=== PATIENT | female | born 1995 | race African-American/Black ===

== ENCOUNTER 2018-04-09 07:49 | Emergency (ER) | payer BC, MEDICAID ==
[~2018-04-09] VITALS: Ht 157.5 cm; Wt 61.4 kg
[~2018-04-09 07:49] MED LIST: CEPHALEXIN500 M1 PO; FLONASE0.05 MG/AC NS; IBU800 M1 PO; IRON1 CHI; LEVAQUIN 2250 MG/TAB; MOTRIN 600600 MG/TAB PO; NORCO 325 MG-51 TAB PO; PERCOCET 325 MG1 TA2 PO; PRENATAL1 TA3 PO; SEPTRA DS 8001 TAB PO; SLOW FE45 MG PO; Senokot-S PO; YAZ 28 3 MG-0.01 TAB PO; ZYRTEC 10MG10 MG PO; ZYRTEC10 MG PO
[2018-04-09 07:53] VITALS: TEMP 99.9
[2018-04-09 08:18] LABS: BASO % 0.2 % (0.0-2.0); EOS # 0.1 (0.0-0.7); GRAN # 5.7 (1.4-6.5); GRAN % 71.2 % (42.2-75.2); HEMOGLOBIN 11.9 g/dl (12.5-16.0); LYMPH # 1.7 (1.2-3.4); LYMPH % 21.5 % (20.0-51.0); MEAN CELL VOLUME 82 fl (80.0-100.0); MEAN CORPUSCULAR HEMOGLOBIN 28 pg (27.0-31.0); MEAN CORPUSCULAR HGB CONC 34 g/dl (33.0-37.0); MEAN PLATELET VOLUME 9.4 fl (7.4-10.4); MONO # 0.5 (0.1-0.6); MONO % 5.6 % (1.7-9.3); PLATELET COUNT 322 K/mm3 (130-400); RED BLOOD COUNT 4.26 M/mm3 (4.10-5.30); REDCELL DISTRIBUTION WIDTH-CV 13.4 % (11.5-14.5)
[2018-04-09 08:20] LABS: HEMATOCRIT 34.8 % (37.0-47.0)
[2018-04-09 08:40] LABS: COLLECTION METHOD CLEAN CATCH
[2018-04-09 08:50] LABS: MUCOUS Present /lpf; PH 6 (5-8); URINE APPEARANCE Hazy; URINE BACTERIA None Seen /hpf; URINE BILIRUBIN Negative (NEGATIVE); URINE BLOOD 2+ (NEGATIVE); URINE COLOR Yellow; URINE GLUCOSE Negative (NEGATIVE); URINE KETONE Negative (NEGATIVE); URINE LEUKOCYTE ESTERASE Trace (NEGATIVE); URINE NITRATE Negative (NEGATIVE); URINE PROTEIN(semi-quant) 2+ (NEGATIVE); URINE RBC 0-2 /hpf; URINE UROBILINOGEN Negative (NEGATIVE)
[2018-04-09 11:35] VITALS: BP 119/64; PULSE 87
== END 2018-04-09 11:35 | disposition home or self-care (01) ==
LOC: COL.ER 07:49
PROVIDERS: Physician Assistant
DX: O46.91 Antepartum hemorrhage, unspecified, first trimester (principal); Z3A.08 8 weeks gestation of pregnancy; Z88.5 Allergy status to narcotic agent

== ENCOUNTER 2018-04-23 11:49 | Emergency (ER) | payer BC, MEDICAID ==
[~2018-04-23] VITALS: Ht 157.5 cm; Wt 56.8 kg
[2018-04-23 12:38] LABS: BASO % 0.2 % (0.0-2.0); EOS % 0.3 % (0-4.0); GRAN # 7.1 (1.4-6.5); GRAN % 73.3 % (42.2-75.2); HEMOGLOBIN 11.7 g/dl (12.5-16.0); LYMPH # 1.9 (1.2-3.4); LYMPH % 19.7 % (20.0-51.0); MEAN CELL VOLUME 82 fl (80.0-100.0); MEAN CORPUSCULAR HEMOGLOBIN 28 pg (27.0-31.0); MEAN CORPUSCULAR HGB CONC 35 g/dl (33.0-37.0); MEAN PLATELET VOLUME 9.2 fl (7.4-10.4); MONO # 0.6 (0.1-0.6); MONO % 6.1 % (1.7-9.3); PLATELET COUNT 334 K/mm3 (130-400); RED BLOOD COUNT 4.14 M/mm3 (4.10-5.30); REDCELL DISTRIBUTION WIDTH-CV 13.2 % (11.5-14.5)
[2018-04-23 12:42] LABS: HEMATOCRIT 33.9 % (37.0-47.0)
[2018-04-23 12:50] LABS: ALBUMIN 4.1 gm/dL (3.5-5.0); BILIRUBIN,TOTAL 0.4 mg/dL (0.0-1.0); CALCIUM 9.3 mg/dL (8.4-10.2); CREATININE, serum 0.56 mg/dL (0.52-1.25); POTASSIUM 3.4 mmol/L (3.4-5.0); TOTAL PROTEIN 7.5 gm/dL (6.4-8.2)
[2018-04-23 12:51] LABS: COLLECTION METHOD CLEAN CATCH
[2018-04-23 13:05] LABS: MUCOUS Present /lpf; PH 6 (5-8); URINE APPEARANCE Hazy; URINE BACTERIA None Seen /hpf; URINE BILIRUBIN Negative (NEGATIVE); URINE BLOOD Negative (NEGATIVE); URINE COLOR Amber; URINE GLUCOSE Negative (NEGATIVE); URINE KETONE 1+ (NEGATIVE); URINE LEUKOCYTE ESTERASE Trace (NEGATIVE); URINE NITRATE Negative (NEGATIVE); URINE PROTEIN(semi-quant) 2+ (NEGATIVE); URINE RBC 0-2 /hpf
[2018-04-23] MEDS ORDERED: CEPHALEXIN500 M1 PO (13:36)
[2018-04-23 14:05] VITALS: BP 118/69; PULSE 71; TEMP 98.1
== END 2018-04-23 14:07 | disposition home or self-care (01) ==
LOC: COL.ER 11:49
PROVIDERS: Emergency Medicine
DX: O21.9 Vomiting of pregnancy, unspecified (principal); O23.41 Unspecified infection of urinary tract in pregnancy, first trimester; Z3A.10 10 weeks gestation of pregnancy
CPT/HCPCS: J0696; J2405; J2765; J7030

== ENCOUNTER 2018-07-09 19:05 | Emergency (ER) | payer MEDICAID ==
[~2018-07-09] VITALS: Ht 157.5 cm; Wt 63.5 kg
[2018-07-09 19:08] VITALS: TEMP 98.7
[2018-07-09 19:38] LABS: COLLECTION METHOD CLEAN CATCH
[2018-07-09 19:45] LABS: PH 7 (5-8); URINE APPEARANCE Clear; URINE BACTERIA None Seen /hpf; URINE BILIRUBIN Negative (NEGATIVE); URINE BLOOD Negative (NEGATIVE); URINE COLOR Straw; URINE GLUCOSE Negative (NEGATIVE); URINE KETONE Negative (NEGATIVE); URINE LEUKOCYTE ESTERASE Negative (NEGATIVE); URINE NITRATE Negative (NEGATIVE); URINE PROTEIN(semi-quant) Negative (NEGATIVE); URINE RBC 0-2 /hpf; URINE UROBILINOGEN Negative (NEGATIVE)
[2018-07-09 20:27] LABS: BASO % 0.2 % (0.0-2.0); EOS # 0.1 (0.0-0.7); EOS % 0.9 % (0-4.0); GRAN % 65.8 % (42.2-75.2); HEMATOCRIT 31.5 % (37.0-47.0); HEMOGLOBIN 10.3 g/dl (12.5-16.0); LYMPH # 2.7 (1.2-3.4); LYMPH % 25.9 % (20.0-51.0); MEAN CELL VOLUME 85 fl (80.0-100.0); MEAN CORPUSCULAR HEMOGLOBIN 28 pg (27.0-31.0); MEAN CORPUSCULAR HGB CONC 33 g/dl (33.0-37.0); MEAN PLATELET VOLUME 9.6 fl (7.4-10.4); MONO # 0.7 (0.1-0.6); MONO % 6.4 % (1.7-9.3); PLATELET COUNT 292 K/mm3 (130-400); RED BLOOD COUNT 3.69 M/mm3 (4.10-5.30); REDCELL DISTRIBUTION WIDTH-CV 12.7 % (11.5-14.5)
[2018-07-09] MEDS ORDERED: ZOFRAN 4MG T4 MG/TAB PO (20:36)
[2018-07-09] MEDS ORDERED: PRENATAL LOW IR1 TA1 PO (20:36)
[2018-07-09 20:42] LABS: ALBUMIN 3.7 gm/dL (3.5-5.0); BILIRUBIN,TOTAL 0.2 mg/dL (0.0-1.0); CALCIUM 9.1 mg/dL (8.4-10.2); CREATININE, serum 0.46 mg/dL (0.52-1.25); POTASSIUM 3.6 mmol/L (3.4-5.0)
[2018-07-09 23:09] VITALS: BP 98/61; PULSE 88
== END 2018-07-09 23:10 | disposition home or self-care (01) ==
LOC: COL.ER 19:05
PROVIDERS: Nurse Practitioner
DX: O21.9 Vomiting of pregnancy, unspecified (principal); O26.892 Other specified pregnancy related conditions, second trimester; R55 Syncope and collapse; Z3A.20 20 weeks gestation of pregnancy; Z88.5 Allergy status to narcotic agent
CPT/HCPCS: J2550; J7030

== ENCOUNTER 2018-09-09 18:44 | Outpatient (CLI) | payer MEDICAID ==
[~2018-09-09] VITALS: Ht 157.5 cm; Wt 66.8 kg
[~2018-09-09 18:44] MED LIST changes: +PRENATAL LOW IR1 TA1 PO; +ZOFRAN 4MG T4 MG/TAB PO
--- NOTE | 2018-09-09 19:00 | NUR ---
1845- Patient ambulatory to [facility] [place] with complaints of RUQ pain, RL back pain, constipation, and blurry vision that has been intermittent over the course of a few weeks. Patient rates pain 9/10 on a 1-10 pain scale. Patient denies contractions, leaking of fluid, bleeding or spotting. Patient states baby has been moving as much as normal which isnt alot normally. Patient takes Tylenol 325mg QD for the pain to no avail. Patient is currently taking a combination of Colace and Miralax for constipation. 1915- See Physician Notification.
[2018-09-09 19:02] VITALS: BP 108/56; PULSE 88; TEMP 98.3
[2018-09-09] MEDS ORDERED: COLACE 100100 MG/CAP PO (19:09)
[2018-09-09] MEDS ORDERED: MIRALAX PA17 GM/Dose PO (19:09)
[2018-09-09 19:30] VITALS: BP 109/52; PULSE 85
[2018-09-09 20:00] VITALS: BP 99/55; PULSE 74
[2018-09-09 20:10] LABS: COLLECTION METHOD CLEAN CATCH
[2018-09-09 20:12] LABS: BASO % 0.1 % (0.0-2.0); EOS # 0.1 (0.0-0.7); EOS % 0.7 % (0-4.0); GRAN # 7.1 (1.4-6.5); GRAN % 69.3 % (42.2-75.2); LYMPH # 2.2 (1.2-3.4); LYMPH % 21.8 % (20.0-51.0); MEAN CELL VOLUME 83 fl (80.0-100.0); MEAN CORPUSCULAR HGB CONC 32 g/dl (33.0-37.0); MEAN PLATELET VOLUME 10.2 fl (7.4-10.4); MONO # 0.7 (0.1-0.6); MONO % 6.4 % (1.7-9.3); PLATELET COUNT 221 K/mm3 (130-400); REDCELL DISTRIBUTION WIDTH-CV 13.2 % (11.5-14.5)
[2018-09-09 20:13] LABS: HEMATOCRIT 29.9 % (37.0-47.0); HEMOGLOBIN 9.6 g/dl (12.5-16.0); MEAN CORPUSCULAR HEMOGLOBIN 27 pg (27.0-31.0)
[2018-09-09 20:16] LABS: MUCOUS Present /lpf; PH 7 (5-8); SQUAMOUS EPITHELIAL 0-2 /hpf; URINE APPEARANCE Clear; URINE BACTERIA None Seen /hpf; URINE BILIRUBIN Negative (NEGATIVE); URINE BLOOD Negative (NEGATIVE); URINE COLOR Yellow; URINE GLUCOSE Negative (NEGATIVE); URINE KETONE Negative (NEGATIVE); URINE LEUKOCYTE ESTERASE Negative (NEGATIVE); URINE NITRATE Negative (NEGATIVE); URINE PROTEIN(semi-quant) Negative (NEGATIVE); URINE RBC 0-2 /hpf; URINE UROBILINOGEN Negative (NEGATIVE); URINE WBC 0-2 /hpf
[2018-09-09 20:23] LABS: ALBUMIN 3.5 gm/dL (3.5-5.0); BILIRUBIN,TOTAL 0.2 mg/dL (0.0-1.0); CALCIUM 8.9 mg/dL (8.4-10.2); CREATININE, serum 0.45 mg/dL (0.52-1.25); POTASSIUM 3.3 mmol/L (3.4-5.0); TOTAL PROTEIN 6.8 gm/dL (6.4-8.2)
[2018-09-09 20:33] VITALS: BP 94/53; PULSE 75
--- NOTE | 2018-09-09 21:55 | NUR ---
2029- FHT reassurring with moderate variability but no true accels noted. reviews strip. OK to give Tylenol and order abdominal US. supervisor [employer]al [employer] contacted to schedule US. 2154- Paper RX given to patient to schedule abdominal US in AM. Patient ambulatory off unit with discharge instructions.
== END 2018-09-09 21:55 | disposition home or self-care (01) ==
LOC: LDRO 18:44
PROVIDERS: Obstetrics & Gynecology
DX: O26.893 Other specified pregnancy related conditions, third trimester (principal); R10.11 Right upper quadrant pain; K59.00 Constipation, unspecified; M54.5 Low back pain; Z3A.29 29 weeks gestation of pregnancy

== ENCOUNTER → 2018-09-11 | Outpatient (CLI) | payer MEDICAID ==
[~2018-09-11] MED LIST changes: +COLACE 100100 MG/CAP PO; +MIRALAX PA17 GM/Dose PO
== END ==
LOC: COL.RAD 10:30
DX: O26.893 Other specified pregnancy related conditions, third trimester (principal); R10.11 Right upper quadrant pain; Z3A.29 29 weeks gestation of pregnancy

== ENCOUNTER 2018-10-13 18:57 | Outpatient (CLI) | payer MEDICAID ==
[~2018-10-13] VITALS: Ht 160 cm; Wt 69.5 kg
--- NOTE | 2018-10-13 19:10 | NUR ---
G2L1. 34-3. Ambulatory to LDR 2. Clean gown on. EFM and TOCO explained and applied. Pt states she fell on some ice last night at 2100. Pt landed on her butt but around midnight she started having intermittent cramping and noticed light pink discharge when going to bathroom. Pt called office this AM and they stated for her to come to L&D but she was unable to due to work. Pt states her symptoms were intermittent throughout the day. Pt states she does not think her water broke but is unsure. SE /-2, amniotest negative. No dishcarge or pink discharge noted to exam glove, exam very dry. Plan of care explained to pt and pt verbalized understanding. Call light within reach. 1923: TOCO tracing contractions, palpate mild and pt states she really is not feeling anything. 1935: updated on pt and pts status. Discharge orders received. See physican notification. 1941: Broken tracing in FHR strip. RN at bedside to adjust monitors with FHR 135bpm. 2004: updated on pt and broken FHR. Orders to still discharge pt home received. See physican notification. 2005: RN at bedside audible maternal heart rate noted. Monitors adjusted with FHR 150bpm. Discharge orders explained to pt and monitors off. 2015: Discharge instructions explained to pt and pt ready to discharge home. Pt ambulatory off unit.
[2018-10-13 22:50] VITALS: BP 101/68; PULSE 101; TEMP 98.3
== END 2018-10-13 20:15 | disposition home or self-care (01) ==
LOC: LDRO 18:57
DX: O26.893 Other specified pregnancy related conditions, third trimester (principal); R25.2 Cramp and spasm; W00.9XXA Unspecified fall due to ice and snow, initial encounter; N89.8 Other specified noninflammatory disorders of vagina; Z3A.34 34 weeks gestation of pregnancy

== ENCOUNTER 2018-10-25 01:53 | Inpatient (IN) | payer MEDICAID ==
[2018-10-25] VITALS (34 sets, daily range): BP systolic 95–126; BP diastolic 54–81; PULSE 67–100; TEMP 98.4–99
[~2018-10-25] VITALS: Ht 157.5 cm; Wt 71.4 kg
[~2018-10-25 01:53] MED LIST changes: +MACROBID 1100 MG/CAP PO; +NATURAL IRON65 MG; +PRENATAL VITAMI1 TA3 PO
--- NOTE | 2018-10-25 02:00 | NUR ---
0200 G2 L1 36.1 WEEK GEST TO LR5 WITH C/O REGULAR CONTRACTIONS SINCE 2330 LAST NIGHT. STATES FEEL LIKE THEY ARE BECOMING STRONGER. VERY QUIET AND TALKS THRU CONTRACTIONS. WAS IN HOSPITAL ON FRIDAY FOR IRON IV INF FOR TIBC OF 7. STATES HAS BEEN FEELING BETTER SINCE THEN. EFM ON WITH CONTRACTINS NOTED EVERY 3-4 MINUTES. SVE 3-4/70/-2 WITH BALLOTABLE HEAD. ADM ASSESSMENT DONE.
--- NOTE | 2018-10-25 03:10 | NUR ---
0310 CONTRACTIONS REMAIN AND STATES FEEL HARDER. TALKS THRU CONTRACTINS. UTERUS PALPATED WITH C/O CONTRACTION AND WAS MODERATELY FIRM. UP TO BR
--- NOTE | 2018-10-25 04:10 | NUR ---
0410 DR APONTE NOTIFIED OF PT STATUS AND CERVICAL GRAIN SHIPPER LAST TWO HOURS. ORDER GIVEN TO GIVE IV FLUIDS AND RECHECK CERVIX IN AN HOUR.
--- NOTE | 2018-10-25 06:10 | NUR ---
Report from Salina WOODS to assume care of patient at this time.
--- NOTE | 2018-10-25 06:15 | NUR ---
Patient breathing through contractions, states pain is increasing. SVE 5/80/-2. Patient requesting epidural when able. Plan of care discussed regarding admission process. Questions answered, verbalizes understanding.
[2018-10-25 06:53] LABS: BASO % 0.2 % (0.0-2.0); EOS # 0.1 (0.0-0.7); EOS % 0.7 % (0-4.0); GRAN # 6.4 (1.4-6.5); GRAN % 66.9 % (42.2-75.2); LYMPH % 21.3 % (20.0-51.0); MEAN CELL VOLUME 80 fl (80.0-100.0); MEAN CORPUSCULAR HGB CONC 31 g/dl (33.0-37.0); MEAN PLATELET VOLUME 11.7 fl (7.4-10.4); MONO # 0.8 (0.1-0.6); MONO % 8.3 % (1.7-9.3); PLATELET COUNT 208 K/mm3 (130-400); RED BLOOD COUNT 3.73 M/mm3 (4.10-5.30)
[2018-10-25 07:02] LABS: HEMOGLOBIN 9.4 g/dl (12.5-16.0); MEAN CORPUSCULAR HEMOGLOBIN 25 pg (27.0-31.0)
--- NOTE | 2018-10-25 07:05 | NUR ---
0705: Patient up to bathroom. SVE 5/80/-2, bloody show noted. 0708: Patient sitting up for epidural placement. Ricky JAMES at bedside. 0713: Lidocaine. 0714: Epidural Catheter placed. 0716: Test Dose given by Ricky JAMES, no adverse reactions noted. 0720: Patient repositioned to left tilt. Plan of care discussed, questions answered. Call light within reach.
--- NOTE | 2018-10-25 07:50 | NUR ---
Patient comfortable with epidural placement. Mehta catheter placed, clear pale yellow urine returned. SVE 5-6/80/-2, bloody show noted. Encouraged to rest. Call light within reach.
--- NOTE | 2018-10-25 08:50 | NUR ---
to bedside. AROM at 0850, large amount of clear fluid noted. SVE unchanged, 5-6/80/-2 per provider, bloody show noted. Pericare performed. Repositioned to left tilt, HOB elevated. Encouraged to rest and to notify RN with any pain, rectal pressure, or urge to push. Call light within reach.
--- NOTE | 2018-10-25 09:10 | NUR ---
Variable decelerations noted. Patient denies rectal pressure or pain. SVE 6-7/90/-1. Patient repositioned to right tilt, HOB elevated. Call light within reach.
--- NOTE | 2018-10-25 09:35 | NUR ---
to bedside. SVE unchanged per provider. Orders to start Pitocin received. Pitocin started at 2mu/min at 0935 per orders.
--- NOTE | 2018-10-25 10:05 | NUR ---
Patient repositioned to left tilt, peanut ball in place. Denies needs at this time. Call light within reach.
--- NOTE | 2018-10-25 10:35 | NUR ---
Patient repositioned to right tilt with peanut ball in place. Patient vomits 330ml clear emesis - patient had just drank water. Shiv Philip.
--- NOTE | 2018-10-25 10:55 | NUR ---
Patient reports rectal pressure with contraction. SVE 8/0, bloody show noted. Patient instructed to notify RN with worsening rectal pressure or urge to push. Verbalizes understanding.
--- NOTE | 2018-10-25 11:30 | NUR ---
1108: Patient calls out reporting increased rectal pressure. SVE AL/+1. 1110: and nursery nurse notified, to bedside. 1113: Janine alcantar'keila. 1119: SVE Complete. Initial push. 1122: Spontaneous vaginal delivery of viable female over intact perineum assisted by . Pitocin off. to abdomen, care assumed by Toyin WOODS. 1127: Spontaneous vaginal delivery of placenta assisted by . Pitocin infusing at 333ml/hr. Fundus firm, lochia WNL. 1130: Recovery period started. Fundus firm, lochia scant. Denies pain or needs at this time.
[2018-10-26 03:00] VITALS: BP 104/59; PULSE 60; TEMP 97.8
[2018-10-26 07:07] LABS: HEMATOCRIT 29.3 % (37.0-47.0); HEMOGLOBIN 9.2 g/dl (12.5-16.0)
[2018-10-26 07:57] VITALS: BP 107/60; PULSE 69; TEMP 98.1
--- NOTE | 2018-10-26 10:07 | NUR ---
Initial visit; Parents thanked [employer] for offering congratulations and God's blessings for the of their daughter. [employer] thanked them for choosing [facility].
[2018-10-26 16:47] VITALS: BP 111/61; PULSE 80; TEMP 98
[2018-10-26 20:30] VITALS: BP 118/73; PULSE 80; TEMP 98.2
[2018-10-27 07:40] VITALS: BP 107/55; PULSE 81; TEMP 98.2
[2018-10-27] MEDS ORDERED: IBU600 MG PO (08:08)
[2018-10-27] MEDS ORDERED: PERCOCET 325 MG1 TA2 PO (08:09)
== END 2018-10-27 13:50 | disposition home or self-care (01) | DRG 807 ==
LOC: LDRO 01:53 → OB 06:20 → LDR 06:20 → OB 14:19
PROVIDERS: Obstetrics & Gynecology; ADMIT Obstetrics & Gynecology
PROC: 10E0XZZ Delivery of Products of Conception, External Approach (ICD-10-PCS; principal; 2018-10-25)
DX: O60.14X0 Preterm labor third trimester with preterm delivery third trimester, not applicable or unspecified (principal); Z37.0 Single live birth; Z3A.36 36 weeks gestation of pregnancy; O99.02 Anemia complicating childbirth; D50.9 Iron deficiency anemia, unspecified
CPT/HCPCS: J2590; J2916; J7120

== ENCOUNTER 2018-10-26 17:30 | Outpatient (RCR) | payer MEDICAID ==
[2018-10-23 16:41] VITALS: BP 106/61; PULSE 85; TEMP 98.1
[~2018-10-26] VITALS: Ht 157.5 cm; Wt 71.2 kg
[2018-10-27] MEDS ORDERED: IBU600 MG PO (08:08)
[2018-10-27] MEDS ORDERED: PERCOCET 325 MG1 TA2 PO (08:09)
== END 2018-10-29 09:38 | disposition home or self-care (01) ==
LOC: EUO 17:30
DX: O99.019 Anemia complicating pregnancy, unspecified trimester (principal); R19.7 Diarrhea, unspecified; Z3A.00 Weeks of gestation of pregnancy not specified; Z79.899 Other long term (current) drug therapy
CPT/HCPCS: J2916

== ENCOUNTER 2020-12-16 17:17 | Emergency (ER) | payer BC ==
[~2020-12-16] VITALS: Ht 157.5 cm; Wt 65.9 kg
[~2020-12-16 17:17] MED LIST changes: +IBU600 MG PO
[2020-12-16 18:09] LABS: BASO % 0.2 % (0.0-2.0); EOS # 0.1 (0.0-0.7); EOS % 0.6 % (0-4.0); GRAN # 7.2 (1.4-6.5); GRAN % 73.2 % (42.2-75.2); HEMOGLOBIN 11.2 g/dl (12.5-16.0); LYMPH # 1.9 (1.2-3.4); LYMPH % 19.1 % (20.0-51.0); MEAN CELL VOLUME 82 fl (80.0-100.0); MEAN CORPUSCULAR HEMOGLOBIN 27 pg (27.0-31.0); MEAN CORPUSCULAR HGB CONC 33 g/dl (33.0-37.0); MEAN PLATELET VOLUME 9.3 fl (7.4-10.4); MONO # 0.6 (0.1-0.6); MONO % 6.4 % (1.7-9.3); PLATELET COUNT 309 K/mm3 (130-400); RED BLOOD COUNT 4.09 M/mm3 (4.10-5.30); REDCELL DISTRIBUTION WIDTH-CV 13.3 % (11.5-14.5)
[2020-12-16] MEDS ORDERED: ZYRTEC 10MG10 MG PO (18:09)
[2020-12-16 18:10] LABS: HEMATOCRIT 33.7 % (37.0-47.0)
[2020-12-16 18:20] LABS: ALANINE AMINOTRANSFERASE 14 U/L (4-34); ALBUMIN 3.8 gm/dL (3.5-5.0); ALKALINE PHOSPHATASE 65 U/L (50-136); ANION GAP 6 mmol/L (7-16); AST,SGOT 23 U/L (15-37); BILIRUBIN,TOTAL < 0.1 mg/dL (0.0-1.0); BLOOD UREA NITROGEN 10 mg/dL (7-17); CALCIUM 9.2 mg/dL (8.4-10.2); CARBON DIOXIDE 21 mmol/L (22-30); CHLORIDE 104 mmol/L (98-107); CREATININE, serum 0.53 (0.52-1.25); GLUCOSE 83 mg/dL (74-106); POTASSIUM 3.3 mmol/L (3.4-5.0); SODIUM 130 mmol/L (137-145); TOTAL PROTEIN 7.2 gm/dL (6.4-8.2)
[2020-12-16 19:04] LABS: HCG,QUANTITATIVE 259290 mIU/mL (0-5)
[2020-12-16 19:18] LABS: COLLECTION METHOD CLEAN CATCH
[2020-12-16 19:29] LABS: MUCOUS Present /lpf; PH 7 (5-8); SQUAMOUS EPITHELIAL 0-2 /hpf; URINE APPEARANCE Clear; URINE BACTERIA None Seen /hpf; URINE BILIRUBIN Negative (NEGATIVE); URINE BLOOD Negative (NEGATIVE); URINE COLOR Yellow; URINE GLUCOSE Negative (NEGATIVE); URINE KETONE 1+ (NEGATIVE); URINE LEUKOCYTE ESTERASE Negative (NEGATIVE); URINE NITRATE Negative (NEGATIVE); URINE PROTEIN(semi-quant) Negative (NEGATIVE); URINE RBC None Seen /hpf; URINE UROBILINOGEN Negative (NEGATIVE); URINE WBC 0-2 /hpf
[2020-12-16 19:34] VITALS: BP 116/78; PULSE 76; TEMP 98
== END 2020-12-16 19:34 | disposition home or self-care (01) ==
LOC: COL.ER 17:17
PROVIDERS: Nurse Practitioner Primary Care
DX: O20.9 Hemorrhage in early pregnancy, unspecified (principal); Z3A.11 11 weeks gestation of pregnancy; Z88.5 Allergy status to narcotic agent

== ENCOUNTER → 2021-05-10 | Outpatient (CLI) | payer SELFPAY ==
[~2021-05-10] MED LIST changes: +MOTRIN 800800 MG/TAB PO
== END ==
LOC: ZCOL.LAB 19:33
DX: R06.02 Shortness of breath (principal); R07.81 Pleurodynia

== ENCOUNTER 2021-05-11 10:05 | Emergency (ER) | payer BC ==
[~2021-05-11] VITALS: Ht 157.5 cm; Wt 77.3 kg
[~2021-05-11 10:05] MED LIST changes: -MOTRIN 800800 MG/TAB PO
[2021-05-11 10:21] VITALS: TEMP 97.8
[2021-05-11 10:50] LABS: BASO % 0.1 % (0.0-2.0); EOS # 0.2 (0.0-0.7); EOS % 2.1 % (0-4.0); GRAN # 5.7 (1.4-6.5); GRAN % 71.4 % (42.2-75.2); LYMPH # 1.5 (1.2-3.4); LYMPH % 19.1 % (20.0-51.0); MEAN CELL VOLUME 82 fl (80.0-100.0); MEAN CORPUSCULAR HGB CONC 32 g/dl (33.0-37.0); MEAN PLATELET VOLUME 10.3 fl (7.4-10.4); MONO # 0.5 (0.1-0.6); MONO % 6.3 % (1.7-9.3); PLATELET COUNT 211 K/mm3 (130-400); REDCELL DISTRIBUTION WIDTH-CV 14.1 % (11.5-14.5)
[2021-05-11 10:53] LABS: HEMOGLOBIN 9.9 g/dl (12.5-16.0); MEAN CORPUSCULAR HEMOGLOBIN 26 pg (27.0-31.0)
[2021-05-11 11:11] LABS: ALANINE AMINOTRANSFERASE 13 U/L (0-55); ALBUMIN 2.9 gm/dL (3.5-5.0); ALKALINE PHOSPHATASE 58 U/L (0-750); ANION GAP 11 mmol/L (7-16); AST,SGOT 15 U/L (5-34); BILIRUBIN,TOTAL 0.5 mg/dL (0.2-1.2); BLOOD UREA NITROGEN 5 mg/dL (7-19); CALCIUM 8.8 mg/dL (8.4-10.2); CARBON DIOXIDE 19 mmol/L (22-29); CHLORIDE 106 mmol/L (98-107); CREATININE, serum 0.65 mg/dL (0.57-1.11); GLUCOSE 115 mg/dL (70-99); POTASSIUM 3.4 mmol/L (3.5-4.5); SODIUM 136 mmol/L (136-145); TOTAL PROTEIN 6.6 gm/dL (6.2-8.1)
[2021-05-11 11:18] LABS: TROPONIN-I < 0.010 ng/mL (0.00-0.033)
[2021-05-11 14:53] VITALS: BP 103/71; PULSE 86
== END 2021-05-11 15:00 | disposition home or self-care (01) ==
LOC: COL.ER 10:05
PROVIDERS: Emergency Medicine
DX: O99.413 Diseases of the circulatory system complicating pregnancy, third trimester (principal); R07.89 Other chest pain; Z3A.32 32 weeks gestation of pregnancy

== ENCOUNTER 2021-05-30 22:59 | Outpatient (CLI) | payer BC ==
[~2021-05-30] VITALS: Ht 157.5 cm; Wt 76.8 kg
--- NOTE | 2021-05-30 23:35 | NUR ---
Ambulatory to unit for labor assessment, accompanied by spouse. Pt reports ctx all day, becoming more uncomfortable tonight. Oriented to room, monitor, plan of care.
[2021-05-30 23:40] VITALS: BP 110/66; PULSE 96
[2021-05-31 00:45] VITALS: BP 107/68; PULSE 102; TEMP 98.5
== END 2021-05-31 01:00 | disposition home or self-care (01) ==
LOC: LDRO 22:59 → LDR 23:35 → LDRO 05-31 01:00
DX: O62.9 Abnormality of forces of labor, unspecified (principal); Z3A.35 35 weeks gestation of pregnancy
CPT/HCPCS: OP

== ENCOUNTER 2021-06-10 13:09 | Inpatient (IN) | payer BC ==
[~2021-06-10] VITALS: Ht 160 cm; Wt 75.9 kg
[2021-06-10] VITALS (27 sets, daily range): BP systolic 98–126; BP diastolic 55–78; PULSE 72–116; TEMP 98.4–98.9
--- NOTE | 2021-06-10 13:20 | NUR ---
Pt arrived on the unit ambulatory and with complaints of contractions since last night worsening this morning and every 5 minutes. Pt denies any leaking of fluid or vaginal bleeding and reports normal movement. EFM and toco monitors started. Vital signs WNL. SVE by this RN /. Plan of care for labor assessment reviewed.
--- NOTE | 2021-06-10 13:49 | NUR ---
Pt off EFM to ambulate.
--- NOTE | 2021-06-10 15:00 | NUR ---
Roles on the unit. FHR tracing and SVE with some change reviewed. Continue labor assessment orders received.
--- NOTE | 2021-06-10 15:10 | NUR ---
Pt off EFM and sitting on the birthing ball.
--- NOTE | 2021-06-10 15:52 | NUR ---
Pt back to monitors after voiding. 1600-SVE 5cm per Selam Gong RN. Dr. Arteaga notified. Orders to admit. IV started in RW. Labs drawn. LR infusing. Loretta Schmitt CRNA requested for epidural placement.
[2021-06-10 16:33] LABS: BASO % 0.2 % (0.0-2.0); EOS % 0.5 % (0-4.0); GRAN # 5.6 K/mm3 (1.4-6.5); GRAN % 67.8 % (42.2-75.2); LYMPH # 1.8 K/mm3 (1.2-3.4); LYMPH % 21.7 % (20.0-51.0); MEAN CELL VOLUME 78 fl (80.0-100.0); MEAN CORPUSCULAR HGB CONC 32 g/dl (33.0-37.0); MEAN PLATELET VOLUME 10.7 fl (7.4-10.4); MONO # 0.7 K/mm3 (0.1-0.6); MONO % 8.7 % (1.7-9.3); PLATELET COUNT 233 K/mm3 (130-400); REDCELL DISTRIBUTION WIDTH-CV 14.7 % (11.5-14.5)
[2021-06-10 16:35] LABS: HEMATOCRIT 30.4 % (37.0-47.0); HEMOGLOBIN 9.7 g/dl (12.5-16.0); MEAN CORPUSCULAR HEMOGLOBIN 25 pg (27.0-31.0)
--- NOTE | 2021-06-10 16:54 | NUR ---
Difficulty tracing FHR due to maternal position. RN at bedside adjusting monitors. FHR audible.
--- NOTE | 2021-06-10 19:20 | NUR ---
FHT's with intermittent variables to 70-90's. Dr Arteaga at L&D desk, aware of variables.
--- NOTE | 2021-06-10 19:30 | NUR ---
Dr Arteaga goes home.
--- NOTE | 2021-06-10 22:34 | NUR ---
Pt reports "my back hurts" SVE complete +1.
--- NOTE | 2021-06-10 22:47 | NUR ---
Dr Arteaga called to come for delivery. 9362 Mehta catheter DC'd, perineal prep done.
--- NOTE | 2021-06-10 23:00 | NUR ---
Roles into room. [address] Arteaga after reduction of nuchal cord x1. pt and family loving and excited about . 2307 Placenta delivers spont and intact with 3 vessell cord. Pitocin gtt to bolus rate. Perineal inspection reveals no lacerations or tears. Fundus frim with minimal lochia, no clots. Pericare done, bed together.
[2021-06-11] VITALS (9 sets, daily range): BP systolic 96–118; BP diastolic 51–81; PULSE 70–100; TEMP 97.6–98.4
--- NOTE | 2021-06-11 01:00 | NUR ---
IV to INT. Epidural dc'd. Eating, denies nausea. Reports " I can't move my right leg very much, but my left leg is good" Reminded pt not to try to get out of bed without staff assistance, verbalizes understanding
--- NOTE | 2021-06-11 02:45 | NUR ---
.Pt reports "that R leg is still pretty numb" Able to move R leg, foot, and able to bend knee slightly"
--- NOTE | 2021-06-11 02:45 | NUR ---
Attempt to stand @ bedside. Unable to bear weight on R leg. Pivot transfer to wheelchair, into bathroom, pivot transfer to toilet. Voids large amount, performs own pericare. pivot transfers to wheelchair with minimal assistance. To room, able to standf @ bedside while abd binder placed. Transfers self to bed.
--- NOTE | 2021-06-11 09:43 | NUR ---
Initial visit; Parents thanked [employer] for offering congratulations and God's blessings for the of their daughter. [employer] thanked family for choosing [facility]
[2021-06-12 07:40] VITALS: BP 111/51; PULSE 56; TEMP 97.9
[2021-06-12] MEDS ORDERED: MOTRIN 800800 MG/TAB PO (09:27)
--- NOTE | 2021-06-12 14:19 | NUR ---
6883 DISCHARGE INSTRUCTIONS REVIEWED WITH PARENTS, DENIES NEEDS OR QUESTIONS. DISCHARGE AMBULTORY WITH FOB AND TO CAR. ACCOMPANIED BY NURSE.
== END 2021-06-12 14:05 | disposition home or self-care (01) | DRG 807 ==
LOC: LDRO 13:09 → LDR 16:10 → OB 06-11 02:45
PROVIDERS: Obstetrics & Gynecology; ADMIT Obstetrics & Gynecology
PROC: 10E0XZZ Delivery of Products of Conception, External Approach (ICD-10-PCS; principal; 2021-06-10)
DX: O60.14X0 Preterm labor third trimester with preterm delivery third trimester, not applicable or unspecified (principal); Z37.0 Single live birth; O99.02 Anemia complicating childbirth; D64.9 Anemia, unspecified; O69.81X0 Labor and delivery complicated by cord around neck, without compression, not applicable or unspecified; Z3A.36 36 weeks gestation of pregnancy
CPT/HCPCS: J2405; J2590; J7120

== ENCOUNTER → 2022-01-14 | Outpatient (CLI) | payer BC ==
[~2022-01-14] MED LIST changes: +MOTRIN 800800 MG/TAB PO
== END ==
LOC: COL.RAD 12:54
DX: N83.202 Unspecified ovarian cyst, left side (principal); N93.9 Abnormal uterine and vaginal bleeding, unspecified

== ENCOUNTER 2023-09-18 12:02 | Emergency (ER) | payer BC ==
[~2023-09-18] VITALS: Ht 157.5 cm; Wt 66.8 kg
[2023-09-18] MEDS ORDERED: predniSONE 50 MG TAB PO ONE (13:45)
[2023-09-18] MEDS ORDERED: Albuterol/Ipratropium 3 MG-0.5 MG/3 ML Neb Soln IH ONE (13:45)
[2023-09-18] MEDS ORDERED: IPRATROPIUM BROM3 M1 IH (14:24)
[2023-09-18] MEDS ORDERED: PREDNISONE50 MG PO (14:24)
[2023-09-18 14:41] VITALS: BP 120/69; PULSE 79; TEMP 98.1
== END 2023-09-18 14:41 | disposition home or self-care (01) ==
LOC: COL.ER 12:02
DX: U07.1 COVID-19 (principal); J44.89 Other specified chronic obstructive pulmonary disease; R51.9 Headache, unspecified; R09.81 Nasal congestion; R11.0 Nausea; Z73.0 Burn-out
CPT/HCPCS: J7512

== ENCOUNTER → 2023-12-04 | Outpatient (CLI) | payer BC ==
[~2023-12-04] MED LIST changes: +Albuterol 0.083% Neb Soln 2.5 MG/3 ML UD IH ONE; +IPRATROPIUM BROM3 M1 IH; +PREDNISONE50 MG PO
== END ==
LOC: COL.CARD 09:16
DX: R06.02 Shortness of breath (principal)

== ENCOUNTER → 2023-12-08 | Outpatient (CLI) | payer BC ==
[~2023-12-08] MED LIST changes: +Methacholine Vial A (Clear Label Base-Cntrl) IH ONE; +Methacholine Vial B (Red Label) 0.0625 MG/ML 3 ML VIAL.NEB IH ONE; +Methacholine Vial C (Orange Label) 0.25 MG/ML 3 ML VIAL.NEB IH ONE
== END ==
LOC: COL.CARD 08:00
DX: R06.02 Shortness of breath (principal)
CPT/HCPCS: J7674